=== PATIENT | female | born 1985 | race American Indian/Alaskan Native ===

== ENCOUNTER 2020-08-04 13:15 | Outpatient (REF) | payer OTHER, SELFPAY | END 2020-08-04 13:16 | disposition home or self-care (01) | LOC: HO.LNP 13:15 | PROVIDERS: Visit Provider Internal Medicine Medical Oncology | DX: Z12.4 Encounter for screening for malignant neoplasm of cervix (principal) | CPT/HCPCS: 88142 ==

== ENCOUNTER 2020-08-15 12:45 | Emergency (ER) | payer OTHER, SELFPAY ==
--- NOTE | 2020-08-15 | ECG_ITS ---
Test Reason : CHEST PAIN Blood Pressure : / mmHG Vent. Rate : 079 BPM Atrial Rate : 079 BPM P-R Int : 138 ms QRS Dur : 074 ms QT Int : 370 ms P-R-T Axes : 063 024 038 degrees QTc Int : 424 ms Normal sinus rhythm RSR' or QR pattern in V1 suggests right ventricular conduction delay Otherwise normal ECG When compared with ECG of 20-DEC-2016 08:26, Nonspecific T wave abnormality no longer evident in Anterior leads Referred By: Generic ED Physician Electronically Signed By:BG LEZAMA MD
[2020-08-15 13:25] VITALS: BP 148/87; PULSE 90; RESP 18; TEMP 37.1; O2SAT 98; BMI 36.2
--- NOTE | 2020-08-15 17:29 | XR_ITS ---
EXAMINATION: XR CHEST CLINICAL INFORMATION: Chest pain COMPARISON: 12/20/2016 TECHNIQUE: 2 views of the chest were obtained. FINDINGS: No significant abnormality is noted involving the heart, lungs, mediastinum, bony thorax or soft tissues. XR/XR chest 2V IMPRESSION: Unremarkable examination.
--- NOTE | 2020-08-15 17:34 | ED.CHESTPAIN ---
HPI - Chest Pain General Chief Complaint: Chest Pain Stated Complaint: chest pain Time Seen by Provider: 08/15/20 17:16 Source: patient Mode of arrival: ambulatory Limitations: no limitations History of Present Illness HPI narrative: 35-year-old female with no significant past medical history presents with 3 days of substernal chest pain. The 1st day that the pain started it was alleviated after an hour or 2, 2nd day it was more intermittent and recurrent, thank and today the pain has been a constant unrelieved pressure substernally. She does not describe any palpitations or diaphoresis with this pain. She was evaluated at [facility] which referred her to the emergency department. She denies fevers, chills, palpitations, shortness of breath, abdominal pain, abdominal distention, dysuria, hematuria, nausea, vomiting, diarrhea, prior MIs, or cardiac history. MD complaint: chest pain Pertinent past history: asthma Onset (ago): day(s) (3) Timing of current episode: increasing and still present Prior episodes: Yes Onset: during rest Pain location: substernal Pain radiation: none Severity: moderate Quality: tightness and dull Relieving factors: rest Exacerbating factors: exertion, inspiration and stress Treatment prior to arrival: other ( NSAIDs 800 mg ibuprofen) Risk Factors Coronary artery disease risk factors: none Thoracic aortic dissection risk factors: none Related Data On Oral Contraceptives: No Allergies Allergy/AdvReac Type Severity Reaction Status Date / Time bee pollen [BEE STINGS] Allergy Severe HIVES, Verified 08/15/20 13:28 DIFFICULTY BREATHING pine nut Allergy Severe ANAPHYLAXIS Verified 08/15/20 13:28 amoxicillin [AMOXICILLIN] Allergy Unknown HIVES/SWELLING/DIFFICULTY Verified 08/15/20 13:28 BREATHING penicillin V Allergy Unknown rash Verified 08/15/20 13:28 Penicillins [PENICILLINS] Allergy Unknown DIFFICULTY Verified 08/15/20 13:28 BREATHING,SWELLING sulfamethoxazole Allergy Unknown ITCH,HIVES,THROAT Verified 08/15/20 13:28 [From BACTRIM] CLOSING POST TX, PT HAS HAD WITHOUT RXN trimethoprim [From BACTRIM] Allergy Unknown ITCHING, Verified 08/15/20 13:28 HIVES, THROAT CLOSING bees Allergy Unknown anaphylaxis Uncoded 02/14/16 00:00 Latex Allergy Unknown rash Uncoded 02/14/16 00:00 Latex Gloves Allergy Unknown Rash Uncoded 08/15/20 13:28 Review of Systems Review of Systems: Constitutional: No Weight loss, No Fever, No Chills, No Night Sweats, No Fatigue, No Malaise ENT/Mouth: No Hearing loss, No Ear Pain, No Nasal Congestion, No Sinus Pain, No Hoarseness, No sore throat, No Rhinorrhea, No Swallowing Difficulty Eyes: No Eye Pain, No Swelling, No Redness, No Foreign Body, No Discharge, No Vision Changes Cardiovascular: positive Chest Pain, no SOB, no Dyspnea on Exertion, No Orthopnea, No Edema, No Palpitations Respiratory: No Cough, No Sputum, No Wheezing, No Smoke Exposure, No Dyspnea Gastrointestinal: no Nausea, No Vomiting, No Diarrhea, No abdominal Pain, No Hematochezia, No Melena Genitourinary: No irregular bleeding, No Dysuria, No Urinary Frequency, No Hematuria, No Urinary Incontinence, No Urgency, No Flank Pain, No Urinary Flow Changes, No Hesitancy Musculoskeletal: No joint pain, No Myalgias, No Joint Swelling Skin: No Skin Lesions, No rash Neuro: No Weakness, No Numbness, No Paresthesias, No Loss of Consciousness, No Dizziness, No Headache Psych: positive Anxiety/Panic, No Depression, No SI/HI/AH/VH Heme/Lymph: No Bruising, No Bleeding,No Lymphadenopathy Endocrine: No Polyuria, No Polydipsia, No Temperature Intolerance Yes all other systems are reviewed and are negative [facility] Past Medical History Attestation statement: The following information was validated with the patient. Medical History Asthma Seasonal allergies Surgical History History of appendectomy Social History Social History Alcohol intake: unknown Smoking Status: Unknown if ever smoked Smoked in Last 30 Days: No Use of substances other than those prescribed or required for medical reasons: Unknown Advance Directives: No Advance Directives Information Provided: Yes Physical Exam Vital Signs: Vital Signs: Last Vital Signs Temp 98.7 F 08/15/20 19:46 Pulse 76 08/15/20 19:46 Resp 16 08/15/20 19:46 BP 144/90 H 08/15/20 19:46 Pulse Ox 99 08/15/20 19:46 Body Mass Index 36.2 Appearance: Alert. Oriented X3. No acute distress. Eyes: Pupils equal, round and reactive to light. ENT: Pharynx normal. Neck: Normal inspection. Neck supple. CVS: Normal heart rate and rhythm. Pulses normal. Respiratory: No respiratory distress. Breath sounds normal. Abdomen: Soft and nontender. Skin: Skin warm and dry. Normal skin color. Normal skin turgor. Extremities: No lower extremity edema. Neuro: No motor deficit. No sensory deficit. Course Course Course Narrative: 35-year-old female with no significant past medical history presents with 3 days of chest pain. Plan care to rule out ACS, upper respiratory, GERD. Plan is for EKG, chest x-ray, CBC, Chem 7, troponins. Workup is negative for acute findings, plan of care is for patient to follow-up with primary care physician as this may be anxiety or gastrointestinal in nature. Patient verbalized understanding of and agrees plan care discharge home. MDM - Chest Pain Differential Diagnosis Differential diagnosis: Likely pneumothorax, stable angina, atypical chest pain, st elevation myocardial infarction, costochondritis, chest pain and biliary colic Medical Records Data Attestation: I reviewed the patient's medical records. Lab Data Attestation: I reviewed the patient's lab results. Result diagrams: 08/15/20 17:31 08/15/20 17:31 Labs: Lab Results 08/15/20 08/15/20 08/15/20 Range/Units 17:31 17:31 17:31 WBC 9.9 (4.8-10.8) X10*3/uL RBC 4.87 (4.20-5.50) X10*6/uL Hgb 14.0 (12.0-16.0) g/dl Hct 41.8 (37-47) % MCV 85.8 (80-98) fL MCH 28.7 (27.0-33.0) pg MCHC 33.5 (31.0-35.0) g/dl RDW 12.5 (11.0-16.0) % Plt Count 340 (160-400) X10*3/uL MPV 10.4 (9.4-12.3) fL Immature Gran % (Auto) 0.2 (0.0-0.4) % Neut % (Auto) 68.8 (45-73) % Lymph % (Auto) 23.4 (20-40) % [place] % (Auto) 5.9 (2-11) % Eos % (Auto) 1.1 (0-4) % Baso % (Auto) 0.6 (0-2) % Lymph # (Auto) 2.3 (1.2-4.9) X10*3/uL [place] # (Auto) 0.6 (0.1-1.2) X10*3/uL Eos # (Auto) 0.1 (0.0-0.4) X10*3/uL Baso # (Auto) 0.1 (0.0-0.2) X10*3/uL Abs Immat Gran (auto) 0.02 (0.00-0.03) X10*3/uL Absolute Neuts (auto) 6.8 (2.0-8.3) X10*3/uL Absolute Nucleated RBC 0.000 (0.0-0.012) X10*3/uL Nucleated RBC % (auto) 0.0 (0.0-0.2) /100WBC Sodium 140 (135-145) mmol/L Potassium 3.8 (3.3-5.1) mmol/l Chloride 103 (96-108) mmol/L Carbon Dioxide 26 (22-29) mmol/L Anion Gap 15 (12-20) BUN 13 (9-16) mg/dL Creatinine 0.73 (0.5-1.4) mg/dL Estim Creat Clear Calc 152.2 Estimated GFR > 60 Random Glucose 77 (60-115) mg/dL Calcium 9.4 (8.4-10.2) mg/dL Magnesium 2.2 (1.6-2.6) mg/dL Total Bilirubin 0.6 (0.0-1.0) mg/dL Direct Bilirubin 0.3 (0.0-0.5) mg/dL AST 16 (5-31) U/L ALT 17 (0-31) U/L Alkaline Phosphatase 64 (39-117) U/L Troponin I High Sens < 3.5 (<3.5-17.0) ng/L Total Protein 7.4 (6.5-8.0) g/dL Albumin 4.8 (3.5-5.0) g/dL Lipase 30 (8-78) U/L Urine Color Urine Appearance Urine pH (5.0-8.0) Ur Specific [place] (1.005-1.025) Urine Protein (NEG-TRACE) MG/DL Urine Glucose (UA) (NEG) MG/DL Urine Ketones (NEG) MG/DL Urine Blood (NEG) Urine Nitrite (NEG) Ur Leukocyte Esterase (NEG) 08/15/20 Range/Units 18:46 WBC (4.8-10.8) X10*3/uL RBC (4.20-5.50) X10*6/uL Hgb (12.0-16.0) g/dl Hct (37-47) % MCV (80-98) fL MCH (27.0-33.0) pg MCHC (31.0-35.0) g/dl RDW (11.0-16.0) % Plt Count (160-400) X10*3/uL MPV (9.4-12.3) fL Immature Gran % (Auto) (0.0-0.4) % Neut % (Auto) (45-73) % Lymph % (Auto) (20-40) % [place] % (Auto) (2-11) % Eos % (Auto) (0-4) % Baso % (Auto) (0-2) % Lymph # (Auto) (1.2-4.9) X10*3/uL [place] # (Auto) (0.1-1.2) X10*3/uL Eos # (Auto) (0.0-0.4) X10*3/uL Baso # (Auto) (0.0-0.2) X10*3/uL Abs Immat Gran (auto) (0.00-0.03) X10*3/uL Absolute Neuts (auto) (2.0-8.3) X10*3/uL Absolute Nucleated RBC (0.0-0.012) X10*3/uL Nucleated RBC % (auto) (0.0-0.2) /100WBC Sodium (135-145) mmol/L Potassium (3.3-5.1) mmol/l Chloride (96-108) mmol/L Carbon Dioxide (22-29) mmol/L Anion Gap (12-20) BUN (9-16) mg/dL Creatinine (0.5-1.4) mg/dL Estim Creat Clear Calc Estimated GFR Random Glucose (60-115) mg/dL Calcium (8.4-10.2) mg/dL Magnesium (1.6-2.6) mg/dL Total Bilirubin (0.0-1.0) mg/dL Direct Bilirubin (0.0-0.5) mg/dL AST (5-31) U/L ALT (0-31) U/L Alkaline Phosphatase (39-117) U/L Troponin I High Sens (<3.5-17.0) ng/L Total Protein (6.5-8.0) g/dL Albumin (3.5-5.0) g/dL Lipase (8-78) U/L Urine Color YELLOW Urine Appearance CLEAR Urine pH 7.0 (5.0-8.0) Ur Specific [place] 1.020 (1.005-1.025) Urine Protein NEG (NEG-TRACE) MG/DL Urine Glucose (UA) NEG (NEG) MG/DL Urine Ketones NEG (NEG) MG/DL Urine Blood NEG (NEG) Urine Nitrite NEG (NEG) Ur Leukocyte Esterase NEG (NEG) Imaging Data Chest x-ray: Attestation: I personally reviewed and interpreted this imaging study as follows: Radiologist's impression: EXAMINATION: XR CHEST CLINICAL INFORMATION: Chest pain COMPARISON: 12/20/2016 TECHNIQUE: 2 views of the chest were obtained. FINDINGS: No significant abnormality is noted involving the heart, lungs, mediastinum, bony thorax or soft tissues. XR/XR chest 2V IMPRESSION: Unremarkable examination. ECG Data ECG #1: Attestation: I personally reviewed and interpreted this ECG as follows: ECG interpretation date: 08/15/20 ECG interpretation time: 12:59 Interpretation: Ventricular rate 79 beats per minute, p.r. interval 138 milliseconds, QRS duration 74 milliseconds, QTC 370, QTC 424, normal sinus rhythm, normal EKG, no prior EKGs available. Discharge Plan Discharge Clinical Impression: Atypical chest pain Chest pain Qualifiers: Chest pain type: unspecified Qualified Code(s): R07.9 - Chest pain, unspecified Patient Disposition: Home, Self-Care Instructions: Chest Pain (ED) Additional Instructions: you were evaluated for 3 days of chest pain. EKG is normal sinus rhythm, chest x-ray is negative for acute findings, troponin which is a cardiac enzyme is negative, labs are unremarkable. Urinalysis is negative. Please follow-up with your primary care physician as this may be anxiety or gastrointestinal in nature. Thank you for choosing this emergency department for evaluation. Please follow-up with primary care physician as needed. Return to the emergency department for any new, concerning, or worsening symptoms.
[2020-08-15 17:35] LABS: MANUAL DIFF FLAG NO
[2020-08-15 17:37] LABS: Basophils Absolute Auto 0.1 X10*3/uL (0.0-0.2); Basophils Percent Auto 0.6 % (0-2); Eosinophils Absolute Auto 0.1 X10*3/uL (0.0-0.4); Eosinophils Percent Auto 1.1 % (0-4); Hematocrit 41.8 % (37-47); Imm Gran Abs Auto 0.02 X10*3/uL (0.00-0.03); Imm Gran Pct Auto 0.2 % (0.0-0.4); Lymphocytes Absolute Auto 2.3 X10*3/uL (1.2-4.9); Lymphocytes Percent Auto 23.4 % (20-40); Mean Corpuscular HGB Conc 33.5 g/dl (31.0-35.0); Mean Corpuscular Hemoglobin 28.7 pg (27.0-33.0); Mean Corpuscular Volume 85.8 fL (80-98); Mean Platelet Volume 10.4 fL (9.4-12.3); Monocytes Absolute Auto 0.6 X10*3/uL (0.1-1.2); Monocytes Percent Auto 5.9 % (2-11); Neutrophils Absolute Auto 6.8 X10*3/uL (2.0-8.3); Neutrophils Percent Auto 68.8 % (45-73); Platelet Count 340 X10*3/uL (160-400); Red Blood Count 4.87 X10*6/uL (4.20-5.50); Red Cell Distribution Width 12.5 % (11.0-16.0); White Blood Count 9.9 X10*3/uL (4.8-10.8)
[2020-08-15 17:49] VITALS: PULSE 91; RESP 18; O2SAT 98
[2020-08-15] MEDS: Magnesium Hydrox/Alum Hydrox 30 ML ORAL.SUSP PO (17:59)
[2020-08-15 18:06] LABS: Alanine Aminotransferase 17 U/L (0-31); Albumin Level 4.8 g/dL (3.5-5.0); Alkaline Phosphatase 64 U/L (39-117); Anion Gap 15 (12-20); Aspartate Amino Transferase 16 U/L (5-31); Bilirubin Direct 0.3 mg/dL (0.0-0.5); Bilirubin Total 0.6 mg/dL (0.0-1.0); Blood Urea Nitrogen 13 mg/dL (9-16); Calcium 9.4 mg/dL (8.4-10.2); Carbon Dioxide 26 mmol/L (22-29); Chloride 103 mmol/L (96-108); Creatinine Clr Calc Pharmacy 152.2; Estimated Glomerular Filt Rate > 60; Glucose Random 77 mg/dL (60-115); Lipase 30 U/L (8-78); Magnesium 2.2 mg/dL (1.6-2.6); Potassium 3.8 mmol/l (3.3-5.1); Sodium 140 mmol/L (135-145); Total Protein 7.4 g/dL (6.5-8.0)
[2020-08-15 18:08] LABS: Troponin-I High Sensitivity < 3.5 ng/L (<3.5-17.0)
--- NOTE | 2020-08-15 18:47 | PC.NURSE ---
UA obtained and sent. Pt ambulating to and from the bathroom with a munguia/steady gait. Pt is CAOx4, speaking full sentences, reporting 5/10 substernal, non reproducible CP that started while she was working today. VSS. Continue to monitor.
[2020-08-15 19:23] LABS: Glucose Urine UA NEG (NEG); Leukocyte Esterase Urine NEG (NEG); Nitrite Urine NEG (NEG); Urine Blood NEG (NEG); Urine Ketones NEG (NEG); Urine Protein NEG (NEG-TRACE)
[2020-08-15 19:26] LABS: Appearance Urine CLEAR; Color Urine YELLOW
[2020-08-15 19:46] VITALS: BP 144/90; PULSE 76; RESP 16; TEMP 37.1; O2SAT 99
== END 2020-08-15 21:23 | disposition home or self-care (01) ==
PROVIDERS: Nurse Practitioner Family; Emergency Provider Emergency Medicine; PCP Internal Medicine Medical Oncology
DX: R07.9 Chest pain, unspecified (principal)
CPT/HCPCS: 36415; 71046; 80048; 80076; 81003; 83690; 83735; 84484; 85025; 93005; 99283; 99284

== ENCOUNTER 2020-11-16 07:41 | Outpatient (REF) | payer MEDICAID, SELFPAY | END 2020-11-16 07:42 | disposition home or self-care (01) | LOC: HO.HOSX 07:41 | PROVIDERS: Visit Provider Orthopaedic Surgery | DX: M25.461 Effusion, right knee (principal); M17.10 Unilateral primary osteoarthritis, unspecified knee | CPT/HCPCS: 99212 ==

== ENCOUNTER 2020-11-28 15:39 | Outpatient (REF) | payer MEDICAID, SELFPAY ==
--- NOTE | ~2020-11-28 | XR_ITS ---
EXAMINATION: XR KNEE, RIGHT CLINICAL INFORMATION: Acute right knee pain. COMPARISON: None TECHNIQUE: Four views of the right knee. FINDINGS: There is no acute fracture or dislocation. The joint spaces are unremarkable. There is a small to moderate suprapatellar joint effusion. Mild prepatellar soft tissue swelling is seen. XR/XR knee RT 4V IMPRESSION: 1. Small to moderate suprapatellar joint effusion without acute osseous abnormality or significant degenerative joint changes.
== END 2020-11-28 15:40 | disposition home or self-care (01) ==
LOC: HO.XRAY 15:39
PROVIDERS: PCP Internal Medicine Medical Oncology; Visit Provider Internal Medicine Medical Oncology
DX: M54.5 Low back pain (principal); M25.561 Pain in right knee
CPT/HCPCS: 73564

== ENCOUNTER → 2020-12-12 08:42 | Outpatient (BNVA) | payer OTHER, SELFPAY | PROVIDERS: Visit Provider Orthopaedic Surgery | DX: M22.2X1 Patellofemoral disorders, right knee (principal) | CPT/HCPCS: 99212 ==

== ENCOUNTER 2022-03-13 10:11 | Outpatient (REF) | payer OTHER, SELFPAY ==
[2022-03-13 15:43] LABS: CT PCR NOT DETECTED (Not Detect.)
[2022-03-13 15:44] LABS: NG PCR NOT DETECTED (Not Detect.)
[2022-03-21 06:46] LABS: HPV mRNA E6/E7 rflx Not Detected (Not Detected)
== END 2022-03-13 10:12 | disposition home or self-care (01) ==
LOC: HO.LAB 10:11
PROVIDERS: Visit Provider Advanced Practice Midwife
DX: Z01.419 Encounter for gynecological examination (general) (routine) without abnormal findings (principal); Z11.3 Encounter for screening for infections with a predominantly sexual mode of transmission; Z11.51 Encounter for screening for human papillomavirus (HPV)
CPT/HCPCS: 87491; 87591; 87624; 88142

== ENCOUNTER 2022-07-02 17:12 | Outpatient (REF) | payer OTHER, SELFPAY ==
--- NOTE | ~2022-07-02 | XR_ITS ---
EXAMINATION: XR HAND, RIGHT CLINICAL INFORMATION: Right hand pain COMPARISON: None TECHNIQUE: PA, lateral, and oblique views of the right hand. FINDINGS: The bones and soft tissues are normal. No fracture. Alignment is anatomic. Joint spaces are maintained. No erosions or soft tissue calcifications. XR/XR hand RT min 3V IMPRESSION: Unremarkable right hand.
== END 2022-07-02 17:13 | disposition home or self-care (01) ==
LOC: HO.HOSX 17:12
PROVIDERS: Visit Provider Orthopaedic Surgery
DX: M79.641 Pain in right hand (principal)
CPT/HCPCS: 73130

== ENCOUNTER 2022-07-29 10:47 | Outpatient (REF) | payer OTHER, SELFPAY ==
--- NOTE | ~2022-07-29 | XR_ITS ---
EXAMINATION: XR HAND, RIGHT CLINICAL INFORMATION: Pain COMPARISON: 07/03/2022 TECHNIQUE: PA, lateral, and oblique views of the right hand. FINDINGS: The bones and soft tissues are normal. No fracture. Alignment is anatomic. Joint spaces are maintained. No erosions or soft tissue calcifications. XR/XR hand RT min 3V IMPRESSION: Normal right hand.
== END 2022-07-29 10:48 | disposition home or self-care (01) ==
LOC: HO.HOSX 10:47
PROVIDERS: Visit Provider Orthopaedic Surgery
DX: M79.641 Pain in right hand (principal)
CPT/HCPCS: 73130

== ENCOUNTER 2022-09-11 | Outpatient (REF) | payer OTHER, SELFPAY ==
--- NOTE | ~2022-09-11 | XR_ITS ---
EXAMINATION: XR HAND, RIGHT CLINICAL INFORMATION: Pain COMPARISON: Previous x-ray most recent July 2022 TECHNIQUE: PA, lateral, and oblique views of the right hand. FINDINGS: Bone alignment is normal. No fracture or dislocation. There is very mild arthritis at the IP joints with small osteophytes, the IP joint of the thumb and DIP joint of the third finger. Joint spaces are otherwise normal. Soft tissues are normal. XR/XR hand RT min 3V IMPRESSION: Very mild arthritis with small osteophytes at the IP joint of the thumb and DIP joint of the third finger.
== END 2022-09-11 00:01 | disposition home or self-care (01) ==
LOC: HO.HOSX
PROVIDERS: Visit Provider Orthopaedic Surgery
DX: Z13.89 Encounter for screening for other disorder (principal)

== ENCOUNTER → 2022-09-11 13:07 | Outpatient (BNVA) | payer OTHER, SELFPAY | PROVIDERS: PCP Internal Medicine Medical Oncology; Visit Provider Orthopaedic Surgery | DX: S62.521D Displaced fracture of distal phalanx of right thumb, subsequent encounter for fracture with routine healing (principal); S69.91XD Unspecified injury of right wrist, hand and finger(s), subsequent encounter | CPT/HCPCS: 73130 ==

== ENCOUNTER 2023-04-11 09:03 | Outpatient (AMB) | payer OTHER, SELFPAY ==
--- NOTE | 2023-04-11 09:08 | A.OFFVIS_ITS ---
Intake Vital Signs 04/11/23 09:09 Height 5 ft 9 in Weight 247 lb BMI 36.5 BP 120/76 Intake Visit Reasons: Annual Intake Note: no concerns The patient agreed to use of a medical massage therapist during this encounter. Scribed for JT Siddiqi by Sylwia Griffiths medical massage therapist, on 04/11/2023 at 9:21 am EST. Associate Professor Of Art History Required: No Information Interpreted: non-clinical & clinical Airplane Tube Builder: Airplane Tube Builder Present ([place]) Accompanied by: Self / Same As Patient Allergies bee pollen [BEE STINGS] Allergy (Severe, Verified 04/11/23 09:14) HIVES, DIFFICULTY BREATHING pine nut Allergy (Severe, Verified 04/11/23 09:14) ANAPHYLAXIS amoxicillin [AMOXICILLIN] Allergy (Unknown, Verified 04/11/23 09:14) HIVES/SWELLING/DIFFICULTY BREATHING penicillin V Allergy (Unknown, Verified 04/11/23 09:14) rash Penicillins [PENICILLINS] Allergy (Unknown, Verified 04/11/23 09:14) DIFFICULTY BREATHING,SWELLING sulfamethoxazole [From BACTRIM] Allergy (Unknown, Verified 04/11/23 09:14) ITCH,HIVES,THROAT CLOSING POST TX, PT HAS HAD WITHOUT RXN trimethoprim [From BACTRIM] Allergy (Unknown, Verified 04/11/23 09:14) ITCHING, HIVES, THROAT CLOSING bees Allergy (Unknown, Uncoded 04/11/23 09:14) anaphylaxis Latex Allergy (Unknown, Uncoded 04/11/23 09:14) rash Latex Gloves Allergy (Unknown, Uncoded 04/11/23 09:14) Rash Is last menstrual period known: Yes Last menstrual period: 03/11/23 HPI HPI Comments History of Present Illness Details She is a premenopausal woman presenting for annual exam. She admits to eating healthy and tries to stay active with exercise resulting in weight loss. Currently sexually active. Uses condoms for BC. Denies vaginal itching and irritation. STD screening offered; she declines. Denies family hx of colon and ovarian cancer. Last pap smear 03/14/22 [facility] Medical History Asthma Seasonal allergies Surgical History History of appendectomy Family History Mother Diabetes Father No problems noted. 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 Sexual orientation: Straight/Heterosexual Gender identity: Female Female Reproductive History Menstrual Age of Menarche: 9 Date of last menstrual period: 03/11/23 control method: condoms Total pregnancies: 0 Date of last pap smear: 03/14/22 Physical Exam Vital Signs: Last Vital Signs BP 120/76 04/11/23 09:09 BMI result Body Mass Index 36.5 Const General: cooperative, healthy appearing, no acute distress, well developed and alert Orientation/consciousness: patient oriented x3 HEENT Head: Yes normal to inspection Eyes General: appearance normal, both eyes and all related structures Neck Neck: Yes normal visual inspection Thyroid: Thyroid normal Chest Chest palpation & inspection: normal inspection of the chest Breast/axilla inspection: normal inspection of the breasts (no puckering, di mpling, peau de orange, retraction, discharge, masses) Breast/axilla palpation: normal palpation of the breasts Resp Effort & Inspection: normal respiratory effort GI Inspection: Yes normal to inspection Palpation (GI): Soft to palpation (to palpation) Rectal Exam - Female: deferred General: Yes bladder normal to inspection External Female Exam: normal external appearance and normal appearance of the urethra Speculum Exam - Vagina: normal appearance of the vagina, normal palpation and normal vaginal discharge Speculum Exam - Cervix: normal appearance of the cervix and normal palpation Bimanual exam- vagina & uterus: normal palpation and normal palpation Bimanual Exam- Adnexa, other: normal adnexae and no masses Skin General skin exam: no rashes or lesions noted Neuro General: patient oriented x3 Cognition (Neuro): normal cognition Extrem General: Yes normal to inspection Psych Attitude: cooperative Thought process: Normal thought process present Assessment & Plan Assessment & Plan (1) Encounter for well woman exam: Code(s): Z01.419 - Encounter for gynecological examination (general) (routine) without ab normal findings Plan: Discussed: Current recommendations for pap smears per ASCCP guidelines Breast awareness and periodic self breast exams. Maintaining a healthy lifestyle including a well balanced diet and routine exercise. Encouraged continued weight loss. Continue condom use. All of her questions and concerns were addressed to the best of my ability. RTO in one year for AG. Coding Level of Care Code Est Pt Prev Care 18-39y(44120) Diagnoses Encounter for well woman exam Z01.419
[2023-04-11 09:09] VITALS: BP 120/76; BMI 36.5
== END 2023-04-11 09:36 | disposition home or self-care (01) ==
LOC: HO.HWS 09:03
PROVIDERS: PCP Internal Medicine Medical Oncology; Visit Provider Advanced Practice Midwife
DX: Z01.419 Encounter for gynecological examination (general) (routine) without abnormal findings (principal)
CPT/HCPCS: 99395

== ENCOUNTER → 2023-04-11 09:03 | Outpatient (BNVA) | payer OTHER, SELFPAY | PROVIDERS: PCP Internal Medicine Medical Oncology; Visit Provider Advanced Practice Midwife ==

== ENCOUNTER 2023-08-21 12:40 | Emergency (ER) | payer OTHER, SELFPAY ==
--- NOTE | ~2023-08-21 | US_ITS ---
EXAMINATION: US ABDOMEN LIMITED CLINICAL INFORMATION: Right upper quadrant tenderness. COMPARISON: None available. TECHNIQUE: Real-time imaging of the right upper quadrant abdominal viscera. FINDINGS: PANCREAS: Normal. LIVER: The liver measures 18 cm in length and is heterogeneously increased in echotexture. No biliary ductal dilatation is evidentThe liver contour is normal. No focal hepatic lesion. GALLBLADDER: Along the anterior wall of the gallbladder, there is a 2-3 mm echogenic focus, perhaps a small polyp or hyperplastic cholecystosis. No definite shadowing calculi, wall thickening or pericholecystic fluid is evident. COMMON BILE DUCT: Normal in caliber measuring 0.2 cm in diameter. RIGHT KIDNEY: Normal. No hydronephrosis. No renal calculi or focal parenchymal lesions. The kidney measures 11.5 cm in maximum dimension. FREE FLUID: None. US/US abdomen limited IMPRESSION: 1. Heterogeneously echogenic, mildly enlarged liver, statistically on the basis of steatosis. 2. Small polyp or adherent sludge along the anterior wall of the gallbladder, but no sonographic evidence of cholelithiasis or cholecystitis.
[2023-08-21 13:22] VITALS: BP 151/86; PULSE 100; RESP 18; TEMP 36.3; O2SAT 100; BMI 35.8
--- NOTE | 2023-08-21 13:22 | ED_ITS ---
HPI - General Adult General Chief complaint: Abdominal Pain Stated complaint: abd pain into back Time Seen by Provider: 08/21/23 20:02 Source: patient Mode of arrival: ambulatory Limitations: no limitations History of Present Illness HPI narrative: 38 yo female with PMH of asthma, prior appendectomy, IBS, here with c/o upper abdominal pain and now radiating to right abdomen since January. No unexplained weight loss she notes it does go up to the chest with burning at times. She has not been on antacid since childhood. She does not take NSAIDs, no prior GI appointments or EGD in the past. She has no black or bloody stools. MD complaint: abdominal pain Onset (ago): month(s) (6) Location: abdomen Radiation: non-radiation Severity: moderate Quality: burning and aching Pain Consistency: constant Relieving factors: none Exacerbating factors: eating Associated symptoms: denies other symptoms Treatments prior to arrival: none Related Data Previous Rx's Medication Instructions Recorded omeprazole 20 mg capsule,delayed 20 mg PO DAILY #30 caps 08/21/23 release Allergies Allergy/AdvReac Type Severity Reaction Status Date / Time bee pollen [BEE STINGS] Allergy Severe HIVES, Verified 08/21/23 13:21 DIFFICULTY BREATHING pine nut Allergy Severe ANAPHYLAXIS Verified 08/21/23 13:21 amoxicillin [AMOXICILLIN] Allergy Unknown HIVES/SWELLING/DIFFICULTY Verified 08/21/23 13:21 BREATHING penicillin V Allergy Unknown rash Verified 08/21/23 13:21 Penicillins [PENICILLINS] Allergy Unknown DIFFICULTY Verified 08/21/23 13:21 BREATHING,SWELLING sulfamethoxazole Allergy Unknown ITCH,HIVES,THROAT Verified 08/21/23 13:21 [From BACTRIM] CLOSING POST [place], PT HAS HAD WITHOUT RXN trimethoprim [From BACTRIM] Allergy Unknown ITCHING, Verified 08/21/23 13:21 HIVES, THROAT CLOSING bees Allergy Unknown anaphylaxis Uncoded 04/11/23 09:14 Latex Allergy Unknown rash Uncoded 04/11/23 09:14 Latex Gloves Allergy Unknown Rash Uncoded 04/11/23 09:14 Review of Systems 2 Review of Systems: Constitutional : No Weight loss, No Fever, No Chills ENT/Mouth : No sore throat, No Rhinorrhea Eyes: No Swelling, No Redness Cardiovascular : No Chest Pain, No SOB, NoEdema Respiratory : No Cough, No Sputum, No Wheezing Gastrointestinal : no Nausea, no Vomiting, no Diarrhea, positive abdominal Pain, No Hematochezia, No Melena Genitourinary : No Dysuria, No Urinary Frequency, No Hematuria, No Urgency Musculoskeletal : No joint pain, No Myalgias, No Joint Swelling Skin : No Skin Lesions, No rash Neuro : No Weakness, No Numbness, No Dizziness, No Headache Psych : No Anxiety/Panic, No Depression All other systems reviewed and are negative. [facility] Past Medical History Attestation statement: The following information was validated with the patient. Source: old records reviewed Medical History Seasonal allergies Asthma Surgical History History of appendectomy Family History Family History Mother Diabetes Father No problems noted. 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 Oriented X3. No acute distress. Eyes: Pupils equal, round and reactive to light. ENT: Pharynx normal. Neck: Normal inspection. Neck supple. CVS: Normal heart rate and rhythm. Pulses normal. Respiratory: No respiratory distress. Breath sounds normal. Abdomen: Soft and very mild upper abdominal ttp no rebound or guarding, neg tran's Skin: Skin warm and dry. Normal skin color. Normal skin turgor. Extremities: No lower extremity edema. No calf ttp Neuro: Oriented X 3. No motor deficit. No sensory deficit. Course Course Course Narrative: This is a rapid medical exam: Additional HPI, ROS, PE not included below will be deferred to primary provider. Patient is a 38-year-old female presenting to the emergency department with complaint of right upper quadrant pain radiating into back for past few months. Saw PCP, was prescribed omeprazole which did not improve symptoms. States pain is now epigastric radiating into chest and back. Reports nausea but denies vomiting. Pain worsened this morning after drinking coffee. Plan: EKG, labs, RUQ U/S Medical Decision Making Medical Decision Making [facility] Narrative: 38 yo female with PMH of asthma, prior appendectomy, IBS, here with c/o 6 months of upper abdominal pain no weight loss, fevers, no hematuria, no n/v/d. At this time will obtain basic labs, US to evaluate GB. Can follow up with GI and start on PPI. No GIB symptoms at this time not on NSAIDs. Differential Diagnosis Differential Diagnoses: The differential diagnosis associated with the presentation includes PUD, gastritis, biliary colic Admission/Observation Consideration of admission/observation: Escalation of care including admission/observation considered 6 months of symptoms reassuring labs and US can be managed as GI as outpatient Lab Data [facility] Lab Attestation statement: I reviewed the patient's lab results. 08/21/23 14:17 08/21/23 14:17 Labs: Lab Results 08/21/23 08/21/23 Range/Units 14:17 20:17 WBC 9.3 (4.8-10.8) X10*3/uL RBC 4.60 (4.20-5.50) X10*6/uL Hgb 13.1 (12.0-16.0) g/dl Hct 38.9 (37.0-47.0) % MCV 84.6 (80.0-98.0) fL MCH 28.5 (27.0-33.0) pg MCHC 33.7 (31.0-35.0) g/dl RDW 13.0 (11.0-16.0) % Plt Count 291 (160-400) X10*3/uL MPV 10.2 (9.4-12.3) fL Immature Gran % (Auto) 0.3 (0.0-0.4) % Neut % (Auto) 77.1 H (45-73) % Lymph % (Auto) 17.1 L (20-40) % [place] % (Auto) 4.4 (2-11) % Eos % (Auto) 0.6 (0-4) % Baso % (Auto) 0.5 (0-2) % Lymph # (Auto) 1.6 (1.2-4.9) X10*3/uL [place] # (Auto) 0.4 (0.1-1.2) X10*3/uL Eos # (Auto) 0.1 (0.0-0.4) X10*3/uL Baso # (Auto) 0.1 (0.0-0.2) X10*3/uL Abs Immat Gran (auto) 0.03 (0.00-0.03) X10*3/uL Absolute Neuts (auto) 7.2 (2.0-8.3) x10*3/uL Absolute Nucleated RBC 0.000 (0.0-0.012) X10*3/uL Nucleated RBC % (auto) 0.0 (0.0-0.2) /100WBC Sodium 140 (135-145) mmol/L Potassium 4.1 (3.3-5.1) mmol/L Chloride 105 (96-108) mmol/L Carbon Dioxide 28 (22-29) mmol/L Anion Gap 11 L (12-20) BUN 14 (9-16) mg/dL Creatinine 0.71 (0.5-1.4) mg/dL Estim Creat Clear Calc 146.5 Estimated GFR > 60 Random Glucose 100 (60-115) mg/dL Calcium 9.6 (8.4-10.2) mg/dL Total Bilirubin 0.4 (0.0-1.0) mg/dL AST 18 (5-31) U/L ALT 17 (0-31) U/L Alkaline Phosphatase 51 (39-117) U/L Troponin I High Sens < 2.7 (<3.5-17.0) ng/L Total Protein 7.3 (6.5-8.0) g/dL Albumin 4.4 (3.5-5.0) g/dL Lipase 22 (8-78) U/L Beta HCG, Quant < 2 mIU/mL Urine Color Yellow Urine Appearance Clear Urine pH 6.5 (5.0-9.0) Ur Specific [place] 1.015 (1.005-1.025) Urine Protein Negative (Neg-Trace) mg/dL Urine Glucose (UA) Negative (Negative) mg/dL Urine Ketones Negative (Negative) mg/dL Urine Blood Negative (Negative) Urine Nitrite Negative (Negative) Ur Leukocyte Esterase Negative (Negative) Independent Interpretation I performed an independent interpretation of an: EKG and Ultrasound (no cholecystitis) Interpretation: Rate: 76 Rhythm: NSR [place]: normal Normal P waves. Normal JEANNE. Normal QRS complex. ST T wave : normal no DAR qTC: normal prior studies: no acute ischemia The study has been interpreted contemporaneously by me. . Radiology Impression Discussion of test interpretation with radiology: I have reviewed the radiologist's reading. Independent Historian Clinical information obtained from an independent historian. History obtained from or confirmed by: Spouse External Record Review External record reviewed: Inpatient record Prescription Management I considered prescription management with: Other Discharge Plan Discharge Clinical Impression: Gastritis Qualifiers: Gastritis type: unspecified gastritis Chronicity: acute Gastritis bleeding: w ithout bleeding Qualified Code(s): K29.00 - Acute gastritis without bleeding Abdominal pain Qualifiers: Abdominal location: epigastric Qualified Code(s): R10.13 - Epigastric pain Patient Disposition: Home, Self-Care Instructions: Gastritis (ED), Abdominal Pain (ED) Additional Instructions: US/US abdomen limited IMPRESSION: 1. Heterogeneously echogenic, mildly enlarged liver, statistically on the basis of steatosis. 2. Small polyp or adherent sludge along the anterior wall of the gallbladder, but no sonographic evidence of cholelithiasis or cholecystitis. return for worsening pain, fevers, black or bloody stools. follow up with GI. avoid NSAIDs but tylenol is okay Prescriptions: New omeprazole 20 mg capsule,delayed release(DR/EC) 20 mg PO DAILY Qty: 30 0RF Referrals: Nelly Mas, DRAINLAYER-BC [Nurse Practitioner] - (call to schedule appointment) Stand Alone Forms: Work/School Release Interventions: ED Discharge Assessment Last Done: 08/21/23 20:50 Discharge Date/Time: 08/21/23 20:51
--- NOTE | 2023-08-21 13:25 | ECG_ITS ---
Test Reason : CP Blood Pressure : / mmHG Vent. Rate : 076 BPM Atrial Rate : 076 BPM P-R Int : 154 ms QRS Dur : 076 ms QT Int : 388 ms P-R-T Axes : 048 018 022 degrees QTc Int : 436 ms Normal sinus rhythm with sinus arrhythmia Normal ECG When compared with ECG of 15-AUG-2020 12:59, No significant change was found Referred By: Love Lyman Electronically Signed By:ANIYAH DIANE MD
[2023-08-21 14:20] LABS: MANUAL DIFF FLAG NO
[2023-08-21 14:24] LABS: Basophils Absolute Auto 0.1 X10*3/uL (0.0-0.2); Basophils Percent Auto 0.5 % (0-2); Eosinophils Absolute Auto 0.1 X10*3/uL (0.0-0.4); Eosinophils Percent Auto 0.6 % (0-4); Hematocrit 38.9 % (37.0-47.0); Hemoglobin 13.1 g/dl (12.0-16.0); Imm Gran Abs Auto 0.03 X10*3/uL (0.00-0.03); Imm Gran Pct Auto 0.3 % (0.0-0.4); Lymphocytes Absolute Auto 1.6 X10*3/uL (1.2-4.9); Lymphocytes Percent Auto 17.1 % (20-40); Mean Corpuscular HGB Conc 33.7 g/dl (31.0-35.0); Mean Corpuscular Hemoglobin 28.5 pg (27.0-33.0); Mean Corpuscular Volume 84.6 fL (80.0-98.0); Mean Platelet Volume 10.2 fL (9.4-12.3); Monocytes Absolute Auto 0.4 X10*3/uL (0.1-1.2); Monocytes Percent Auto 4.4 % (2-11); Neutrophils Absolute Auto 7.2 x10*3/uL (2.0-8.3); Neutrophils Percent Auto 77.1 % (45-73); Platelet Count 291 X10*3/uL (160-400); White Blood Count 9.3 X10*3/uL (4.8-10.8)
[2023-08-21 14:39] LABS: Alanine Aminotransferase 17 U/L (0-31); Albumin Level 4.4 g/dL (3.5-5.0); Alkaline Phosphatase 51 U/L (39-117); Anion Gap 11 (12-20); Aspartate Amino Transferase 18 U/L (5-31); Bilirubin Total 0.4 mg/dL (0.0-1.0); Blood Urea Nitrogen 14 mg/dL (9-16); Calcium 9.6 mg/dL (8.4-10.2); Carbon Dioxide 28 mmol/L (22-29); Chloride 105 mmol/L (96-108); Creatinine Clr Calc Pharmacy 146.5; Estimated Glomerular Filt Rate > 60; Glucose Random 100 mg/dL (60-115); Potassium 4.1 mmol/L (3.3-5.1); Sodium 140 mmol/L (135-145); Total Protein 7.3 g/dL (6.5-8.0)
[2023-08-21 14:46] LABS: Troponin-I High Sensitivity < 2.7 ng/L (<3.5-17.0)
[2023-08-21 15:06] LABS: HCG Quantitative < 2 mIU/mL
[2023-08-21 20:27] LABS: Appearance Urine Clear; Color Urine Yellow; Glucose Urine UA Negative (Negative); Leukocyte Esterase Urine Negative (Negative); Nitrite Urine Negative (Negative); PH 6.5 (5.0-9.0); Specific Gravity - Urine 1.015 (1.005-1.025); Urine Blood Negative (Negative); Urine Ketones Negative (Negative); Urine Protein Negative (Neg-Trace)
[2023-08-21 21:20] LABS: Lipase 22 U/L (8-78)
== END 2023-08-21 20:51 | disposition home or self-care (01) ==
PROVIDERS: Registered Nurse Emergency; Emergency Provider Emergency Medicine; PCP Internal Medicine Medical Oncology
DX: K29.00 Acute gastritis without bleeding (principal); R10.13 Epigastric pain; R07.89 Other chest pain; M54.50 Low back pain, unspecified; Z87.891 Personal history of nicotine dependence; Z79.899 Other long term (current) drug therapy
CPT/HCPCS: 36415; 76705; 80053; 81003; 83690; 84484; 84702; 85025; 93005; 99283; 99284

== ENCOUNTER → 2023-08-21 13:25 | Outpatient (BNV) | payer OTHER, SELFPAY | PROVIDERS: Emergency Provider Emergency Medicine; PCP Internal Medicine Medical Oncology; Visit Provider Internal Medicine Cardiovascular Disease | DX: R07.9 Chest pain, unspecified (principal) | CPT/HCPCS: 93010 ==

== ENCOUNTER 2023-10-24 08:33 | Day surgery (SDC) | payer OTHER, SELFPAY ==
[2023-10-22 13:16] VITALS: BMI 33.9
--- NOTE | 2023-10-23 10:11 | P.CONAN_ITS ---
Documented by User: Theresa Johnson NP 10/23/23 10:11 HPI - Anesthesia Eval Consult details Narrative: 38yo F for Upper Endoscopy PMFSH Active Problems Active Problems: All Active Problems (Updated 10/22/23 @ 13:15 by Cady Flores RN) Injury of nail bed of right thumb (Acute) Fracture of distal phalanx of right thumb (Acute) Patellofemoral pain syndrome of right knee (Acute) Past Medical History Medical History Back pain Seasonal allergies Asthma Family History Family History Mother Diabetes Father No problems noted. 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 Sexual orientation: Straight/Heterosexual Gender identity: Female Meds Allergies Allergy/AdvReac Type Severity Reaction Status Date / Time bee pollen [BEE STINGS] Allergy Severe HIVES, Verified 08/21/23 13:21 DIFFICULTY BREATHING pine nut Allergy Severe ANAPHYLAXIS Verified 08/21/23 13:21 sulfamethoxazole Allergy Severe ITCH,HIVES,THROAT Verified 10/22/23 13:12 [From BACTRIM] CLOSING POST [place], PT HAS HAD WITHOUT RXN trimethoprim [From BACTRIM] Allergy Severe ITCHING, Verified 10/22/23 13:12 HIVES, THROAT CLOSING amoxicillin [AMOXICILLIN] Allergy Intermediate HIVES/SWELLING/DIFFICULTY Verified 10/22/23 13:12 BREATHING/RASH latex Allergy Intermediate Rash Verified 10/22/23 13:12 Penicillins [PENICILLINS] Allergy Intermediate DIFFICULTY Verified 10/22/23 13:12 BREATHING,SWELLING,RASH Home Medications Medication Instructions Recorded Confirmed Last Taken Type albuterol sulfate 90 mcg/actuation 1 puff inhalation QID PRN 10/22/23 10/22/23 Unknown History aerosol inhaler (ProAir HFA) Shortness Of Breath cetirizine 10 mg tablet (Zyrtec) 10 mg PO DAILY 10/22/23 10/22/23 Unknown History epinephrine 0.3 mg/0.3 mL 0.3 mg IM DIRECTED PRN 10/22/23 10/22/23 Unknown History injection, auto-injector Anaphylaxis multivitamin 1 tab PO DAILY 10/22/23 10/22/23 Unknown History Exam Height,Weight and Vital Signs: Height 5 ft 11 in Weight 110.223 kg Assessment and Plan Assessment Anesthesia Assessment: Chart Reviewed Documented by User: Vianey Henning MD 10/24/23 09:27 [facility] Past Medical History Medical History Back pain Seasonal allergies Asthma Family History Family History Mother Diabetes Father No problems noted. 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 Sexual orientation: Straight/Heterosexual Gender identity: Female Meds Allergies Allergy/AdvReac Type Severity Reaction Status Date / Time bee pollen [BEE STINGS] Allergy Severe HIVES, Verified 08/21/23 13:21 DIFFICULTY BREATHING pine nut Allergy Severe ANAPHYLAXIS Verified 08/21/23 13:21 sulfamethoxazole Allergy Severe ITCH,HIVES,THROAT Verified 10/22/23 13:12 [From BACTRIM] CLOSING POST [place], PT HAS HAD WITHOUT RXN trimethoprim [From BACTRIM] Allergy Severe ITCHING, Verified 10/22/23 13:12 HIVES, THROAT CLOSING amoxicillin [AMOXICILLIN] Allergy Intermediate HIVES/SWELLING/DIFFICULTY Verified 10/22/23 13:12 BREATHING/RASH latex Allergy Intermediate Rash Verified 10/22/23 13:12 Penicillins [PENICILLINS] Allergy Intermediate DIFFICULTY Verified 10/22/23 13:12 BREATHING,SWELLING,RASH Home Medications Medication Instructions Recorded Confirmed Last Taken Type albuterol sulfate 90 mcg/actuation 1 puff inhalation QID PRN 10/22/23 10/22/23 Unknown History aerosol inhaler (ProAir HFA) Shortness Of Breath cetirizine 10 mg tablet (Zyrtec) 10 mg PO DAILY 10/22/23 10/22/23 Unknown History epinephrine 0.3 mg/0.3 mL 0.3 mg IM DIRECTED PRN 10/22/23 10/22/23 Unknown History injection, auto-injector Anaphylaxis multivitamin 1 tab PO DAILY 10/22/23 10/22/23 Unknown History Exam Airway Mallampati Class: II TM Dist: >3cm Neck ROM: Full Loose/Missing/Broken Teeth: No Heart: RRR Lungs: CTA Assessment and Plan Final Anesthetic Review Family History of Problems with Anesthesia: No History of Problems with Anesthesia: No NPO: Yes ASA Class: II Final Preanesthetic Review: Meds/Allgs Chart Reviewed, Consent Obtained/Reviewed and Anes Risks/Benef Reviewed Patient Risk: Low Procedure Risk: Intermediate Anesthetic Plan Anesthetic Plan: MAC: Disposition: Standard PACU
[2023-10-24 08:44] VITALS: BMI 33.6
[2023-10-24 08:52] VITALS: BP 127/86; PULSE 80; RESP 16; TEMP 36.4; O2SAT 97
[2023-10-24 09:00] LABS: UPreg QC Valid YES; Urine Pregnancy NEGATIVE (NEGATIVE)
[2023-10-24] MEDS: Lactated Ringers 1,000 ML 100 ML IVCONT (09:06)
--- NOTE | 2023-10-24 09:44 | MHC.SHP ---
Pre-Procedural Eval Section A - 24 Hr Update-Section A only Date of Service: 10/24/23 Section B - Complete if H&P > 30 days Chief Complaint: Epigastric pain Details of Present Illness: see h&p no changes Relevant Family History (Specify if Yes): No Relevant Social History: None Present Medications: see Short Stay Collaborative assessment Medical History: No relevant PMH History of Previous Operations: No relevant previous surgery Allergies: Allergies Allergy/AdvReac Type Severity Reaction Status Date / Time bee pollen [BEE STINGS] Allergy Severe HIVES, Verified 08/21/23 13:21 DIFFICULTY BREATHING pine nut Allergy Severe ANAPHYLAXIS Verified 08/21/23 13:21 sulfamethoxazole Allergy Severe ITCH,HIVES,THROAT Verified 10/22/23 13:12 [From BACTRIM] CLOSING POST [place], PT HAS HAD WITHOUT RXN trimethoprim [From BACTRIM] Allergy Severe ITCHING, Verified 10/22/23 13:12 HIVES, THROAT CLOSING amoxicillin [AMOXICILLIN] Allergy Intermediate HIVES/SWELLING/DIFFICULTY Verified 10/22/23 13:12 BREATHING/RASH latex Allergy Intermediate Rash Verified 10/22/23 13:12 Penicillins [PENICILLINS] Allergy Intermediate DIFFICULTY Verified 10/22/23 13:12 BREATHING,SWELLING,RASH Review of Systems Sugical H&P ROS: Negative: Constitution, Cardiovascular, Respiratory, Neurological, Psychiatric, Hem-Onc, Allergic/Immunologic, Gastrointestinal, Genitourinary, Musculoskeletal, Integumentary, Endocrine and Eyes/Ears/Nose/Throat Exam Surgical H&P Exam: Normal: HEENT, Normal: Heart, Normal: Lungs, Normal: Extremities, Normal: Abdomen, Normal: Skin and Normal: Neurological Plan Diagnosis/Plan: Unchanged I have reviewed the history and physical and performed a pertinent physical examination on my patient. No changes have occurred unless specified. Time Spent With Patient Time: Total time managing care of this patient today ____ minutes.
[2023-10-24 10:13] VITALS: BP 112/79; PULSE 95; RESP 14; TEMP 36.7; O2SAT 98
[2023-10-24 10:28] VITALS: BP 120/78; PULSE 81; RESP 16; TEMP 36.3; O2SAT 100
--- NOTE | 2023-10-24 10:32 | OP_ITS ---
DATE OF SERVICE: 10/24/2023 SURGEON: Javad Rivera MD INDICATIONS: Epigastric pain. PREOPERATIVE DIAGNOSIS: Upper endoscopy with biopsy. POSTOPERATIVE DIAGNOSIS: PROCEDURE PERFORMED: ESTIMATED BLOOD LOSS: COMPLICATIONS: ANESTHESIA: Monitored anesthesia care. ASSISTANTS: SPECIMENS: DESCRIPTION OF PROCEDURE: A history and physical was performed. The risks and benefits of the procedure were explained to the patient. Informed consent was obtained. The patient was placed in the left lateral decubitus position. The Olympus video gastroscope was introduced into the esophagus, stomach, and duodenum. Examination was performed. The scope was removed. She tolerated the procedure well and was taken to the recovery area in stable condition. FINDINGS: Esophagus: The esophagus was normal. There was no esophagitis. Biopsies were obtained from the EG junction. Stomach: The stomach showed no evidence of masses, ulcers, or polyps. Antral biopsies were obtained to evaluate for H pylori. Duodenum: The bulb and 2nd portion were normal. Second portion biopsies were also obtained to evaluate for malabsorption. IMPRESSION: Normal upper endoscopy. RECOMMENDATION: 1. Follow up the biopsy results. 2. Continue omeprazole. MD GETACHEW Wells/STEPHON / [id number]
== END 2023-10-24 11:00 | disposition home or self-care (01) ==
PROVIDERS: Nurse Practitioner; PCP Internal Medicine Medical Oncology; Visit Provider Internal Medicine Gastroenterology
PROC: 0DJ08ZZ Inspection of Upper Intestinal Tract, Via Natural or Artificial Opening Endoscopic (ICD-10-PCS; CPT 43235; principal; 2023-10-24 09:30)
DX: R10.13 Epigastric pain (principal); Z79.899 Other long term (current) drug therapy
CPT/HCPCS: 43239; 81025; 88305; 88313; 88342; J2704

== ENCOUNTER 2024-04-20 09:43 | Outpatient (AMB) | payer OTHER, SELFPAY ==
--- NOTE | 2024-04-20 10:00 | A.OFFVIS_ITS ---
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 Body Masker: Body Masker Present (Clari) Allergies bee pollen [BEE STINGS] Allergy (Severe, Verified 04/20/24 10:01) HIVES, DIFFICULTY BREATHING pine nut Allergy (Severe, Verified 04/20/24 10:01) ANAPHYLAXIS sulfamethoxazole [From BACTRIM] Allergy (Severe, Verified 04/20/24 10:01) ITCH,HIVES,THROAT CLOSING POST TX, PT HAS HAD WITHOUT RXN trimethoprim [From BACTRIM] Allergy (Severe, Verified 04/20/24 10:01) ITCHING, HIVES, THROAT CLOSING amoxicillin [AMOXICILLIN] Allergy (Intermediate, Verified 04/20/24 10:01) HIVES/SWELLING/DIFFICULTY BREATHING/RASH latex Allergy (Intermediate, Verified 04/20/24 10:01) Rash Penicillins [PENICILLINS] Allergy (Intermediate, Verified 04/20/24 10:01) DIFFICULTY BREATHING,SWELLING,RASH Is last menstrual period known: Yes Last menstrual period: 04/11/24 HPI Comments Details: She is a premenopausal woman presenting for annual examination. Doing well with no concerns. She tries to eat healthy and stays active with exercise. Regular monthly menses, uses condoms. She reports occasional hot flashes. She denies vaginal itching and irritation. STI screening offered; she declines. Denies family history of ovarian cancer. Family history of breast and colon cancer. Last pap smear 2021, negative. [facility] Medical History Back pain Seasonal allergies Asthma Surgical History History of appendectomy Family History Mother Diabetes Father No problems noted. 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 Sexual orientation: Straight/Heterosexual Gender identity: Female Female Reproductive History Menstrual Age of Menarche: 9 Date of last menstrual period: 04/11/24 Total pregnancies: 0 Date of last pap smear: 03/13/22 (neg pap and hpv) Review of Systems Const All systems reviewed & are unremarkable except as noted in HPI and below Reports as per HPI Eyes Reports no additional complaints ENT Reports no additional complaints Card Reports no additional complaints Resp Reports no additional complaints GI Reports as per HPI and Reports no additional complaints Reports as per HPI Musc Reports no additional complaints Skin/Breast Reports as per HPI Neuro Reports no additional complaints Psych Reports no additional complaints Endo Reports no additional complaints Tho/Lymph Reports no additional complaints Aller/Immun Reports no additional complaints Physical Exam Vital Signs: Last Vital Signs BP 116/84 04/20/24 10:01 BMI result Body Mass Index 34.3 Const General: cooperative, healthy appearing, no acute distress, well developed and alert Orientation/consciousness: patient oriented x3 HEENT Head: Yes normal to inspection Eyes General: appearance normal, both eyes and all related structures Neck Neck: Yes normal visual inspection Thyroid: Thyroid normal Chest Chest palpation & inspection: normal inspection of the chest and other (no puckering, dimpling, peau de orange, retraction, discharge, masses) Breast/axilla inspection: normal inspection of the breasts Breast/axilla palpation: normal palpation of the breasts Resp Effort & Inspection: normal respiratory effort GI Inspection: Yes normal to inspection Palpation (GI): Soft to palpation Rectal Exam - Female: deferred General: Yes bladder normal to palpation External Female Exam: normal external appearance and normal appearance of the urethra Speculum Exam - Vagina: normal appearance of the vagina, normal palpation and normal vaginal discharge Speculum Exam - Cervix: normal appearance of the cervix and normal palpation Bimanual exam- vagina & uterus: normal bimanual exam, normal palpation, uterine size normal, bladder normal to palpation, normal palpation and non-tender Bimanual Exam- Adnexa, other: no masses Skin General skin exam: no rashes or lesions noted Rashes: no rashes Neuro General: patient oriented x3 Cognition (Neuro): normal cognition Extrem General: Yes normal to inspection Psych Attitude: cooperative Thought process: Normal thought process present Assessment & Plan Assessment & Plan (1) Encounter for well woman exam with routine gynecological exam: Code(s): Z01.419 - Encounter for gynecological examination (general) (routine) without abnormal findings Category: Medical Plan Discussed: Current recommendations for pap smears per ASCCP guidelines. Breast awareness and periodic breast exams. Maintain a healthy lifestyle including a well balanced diet and routine exercise. Use condoms for prevention. Perimenopausal changes. Monitor menstrual cycles, report any unscheduled bleeding, bleeding episodes <24 days apart or heavy/prolonged menstrual bleeding. Call the office for a follow up for any concerns. Patient verbalizes understanding and agrees to the plan of care. She was given opportunity to ask questions and all questions were answered to the best of my ability. RTO in one year for annual market development trainer examination. This note is constructed using voice recognition software. While every effort has been made to ensure accuracy, manager actuarial errors may have been included. Coding Level of Care Code Est Pt Prev Care 18-39y(22626) Diagnoses Encounter for well woman exam with routine gynecological exam Z01.419
[2024-04-20 10:01] VITALS: BP 116/84; BMI 34.3
== END 2024-04-20 11:00 | disposition home or self-care (01) ==
LOC: HO.HWS 09:43
PROVIDERS: PCP Internal Medicine Medical Oncology; Visit Provider Advanced Practice Midwife
DX: Z01.419 Encounter for gynecological examination (general) (routine) without abnormal findings (principal)
CPT/HCPCS: 99395

== ENCOUNTER → 2024-04-20 09:43 | Outpatient (BNVA) | payer OTHER, SELFPAY | PROVIDERS: PCP Internal Medicine Medical Oncology; Visit Provider Advanced Practice Midwife ==

== ENCOUNTER 2024-06-29 08:39 | Outpatient (REF) | payer OTHER, SELFPAY ==
--- NOTE | ~2024-06-29 | XR_ITS ---
EXAMINATION: XR KNEE, RIGHT CLINICAL INFORMATION: M25.561 - Pain in right knee COMPARISON: None available. TECHNIQUE: AP view of the right knee. FINDINGS: No fracture or joint effusion. Alignment is anatomic. Joint spaces are maintained. No abnormal soft tissue calcification. XR/XR knee RT 1V IMPRESSION: Normal right knee. Electronically signed by: Scot Rodriguez MD 08/27/2024 12:35 PM [facility] [place]
--- NOTE | ~2024-06-29 | XR_ITS ---
EXAMINATION: XR KNEE, LEFT CLINICAL INFORMATION: M25.562 - Pain in left knee COMPARISON: 12/19/2014. TECHNIQUE: Three views of the left knee. FINDINGS: No fracture, dislocation, or suspicious bone lesion. There is normal alignment. There is normal bone mineralization. Medial, lateral, and patellofemoral compartment joint spaces preserved. There is a moderate sized suprapatellar joint effusion present. Soft tissues otherwise appear normal. XR/XR knee LT 3V IMPRESSION: 1. No acute bony abnormalities. 2. Moderate sized suprapatellar joint effusion of indeterminate etiology. Electronically signed by: Scot Rodriguez MD 08/27/2024 12:37 PM [facility]
== END 2024-06-29 08:40 | disposition home or self-care (01) ==
LOC: HO.HOSX 08:39
PROVIDERS: Visit Provider Physician Assistant
DX: M25.561 Pain in right knee (principal); M25.562 Pain in left knee
CPT/HCPCS: 73560; 73562

== ENCOUNTER 2024-06-29 09:23 | Outpatient (AMB) | payer OTHER, SELFPAY ==
--- NOTE | 2024-06-29 09:41 | A.OFFVIS_ITS ---
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 Patients reports having a history of knee aspirations about 8 years ago. She recently went out for her birthday on 06/25/24 and the following day she woke up with pain and swelling. Denies injury. She presented to an urgent care on 06/27/24, they tested her for gout however she has not received results. She was also prescribed prednisone that she going to be starting today. Currently she is having constant pain around her kneecap and posterior aspect of knee. States feeling a little fluid in her knee. Finds little relief with Tylenol as well as resting and heat. She feels icing makes her stiffness worse. Allergies bee pollen [BEE STINGS] Allergy (Severe, Verified 06/29/24 09:43) HIVES, DIFFICULTY BREATHING pine nut Allergy (Severe, Verified 06/29/24 09:43) ANAPHYLAXIS sulfamethoxazole [From BACTRIM] Allergy (Severe, Verified 06/29/24 09:43) ITCH,HIVES,THROAT CLOSING POST TX, PT HAS HAD WITHOUT RXN trimethoprim [From BACTRIM] Allergy (Severe, Verified 06/29/24 09:43) ITCHING, HIVES, THROAT CLOSING amoxicillin [AMOXICILLIN] Allergy (Intermediate, Verified 06/29/24 09:43) HIVES/SWELLING/DIFFICULTY BREATHING/RASH latex Allergy (Intermediate, Verified 06/29/24 09:43) Rash Penicillins [PENICILLINS] Allergy (Intermediate, Verified 06/29/24 09:43) DIFFICULTY BREATHING,SWELLING,RASH Medication List - Last Reconciled 06/29/24 by Reynold Galvan PA-C albuterol sulfate 90 mcg/actuation (ProAir HFA) 1 puff inhalation QID PRN cetirizine (Zyrtec) 10 mg PO DAILY epinephrine 0.3 mg IM DIRECTED PRN multivitamin 1 tab PO DAILY omeprazole 20 mg PO DAILY prednisone 20 mg PO DAILY HPI 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 She states approximately 4-5 days ago she was out with some friends and she noticed she had some pain and swelling the following day. She denies injury. She was seen at urgent care who ordered labs to rule out gout. Pending results. They gave her a prescription for prednisone which she has yet to start. No other treatment to date. [facility] Medical History Back pain Seasonal allergies Asthma Surgical History History of appendectomy Family History Mother Diabetes Father No problems noted. 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 Sexual orientation: Straight/Heterosexual Gender identity: Female Female Reproductive History Menstrual Age of Menarche: 9 Review of Systems Const All systems reviewed & are unremarkable except as noted in HPI and below Physical Exam Vital Signs: BMI result Body Mass Index 34.3 Const General: cooperative and no acute distress Orientation/consciousness: patient oriented x3 Resp Effort & Inspection: normal respiratory effort and able to speak in complete sentences Cardio Peripheral pulses: Peripheral pulses 2+ throughout Neuro General: patient oriented x3 Extrem Other: Left knee normal to inspection. No abrasions. No redness. No. She has trace joint effusion. Mild tenderness around the patella with patellar grind. She can extend the knee without lag. Flexion to 95 degrees. Mild medial and lateral tenderness to the joint. Calf supple nontender neurovascularly intact. Results Reviewed Results Reviewed: X-rays of the left knee obtained in the office today are negative for any acute or chronic abnormalities. Assessment & Plan Assessment & Plan (1) Patellofemoral arthritis of left knee: Code(s): M17.12 - Unilateral primary osteoarthritis, left knee Category: Medical Plan: We discussed options today which include aspiration and injection. She would like to start the prednisone 1st to see how she responds to this which I am in agreement with. I encouraged activity as tolerated. She was fit for a knee brace in the office today. If symptoms persist or worsen over the next several weeks after she has discontinued the prednisone she can contact our office to discuss steroid injection otherwise follow-up as needed. Orders: Orders XR knee RT 1V Today M25.561 - Pain in right knee XR knee LT 3V Today M25.562 - Pain in left knee Coding Level of Care Code Est Pt Level 3 (22813) Complex EM visit Add On G2211 Diagnoses Patellofemoral arthritis of left knee M17.12
[2024-06-29 09:48] VITALS: BMI 34.3
== END 2024-06-29 10:41 | disposition home or self-care (01) ==
PROVIDERS: PCP Internal Medicine Medical Oncology; Visit Provider Physician Assistant
DX: M17.12 Unilateral primary osteoarthritis, left knee (principal)
CPT/HCPCS: 99213

== ENCOUNTER → 2024-06-29 09:35 | Outpatient (BNV) | payer OTHER, SELFPAY | PROVIDERS: Visit Provider Radiology Diagnostic Radiology | DX: M25.462 Effusion, left knee (principal); M25.561 Pain in right knee | CPT/HCPCS: 73560; 73562 ==

== ENCOUNTER 2024-07-07 11:00 | Outpatient (REF) | payer OTHER, SELFPAY ==
[2024-07-07 11:24] LABS: MANUAL DIFF FLAG NO
[2024-07-07 12:02] LABS: Basophils Absolute Auto 0.1 X10*3/uL (0.0-0.2); Basophils Percent Auto 0.7 % (0-2); Eosinophils Absolute Auto 0.2 X10*3/uL (0.0-0.4); Eosinophils Percent Auto 1.4 % (0-4); Hematocrit 36.1 % (37.0-47.0); Hemoglobin 12.2 g/dl (12.0-16.0); Imm Gran Abs Auto 0.06 X10*3/uL (0.00-0.03); Imm Gran Pct Auto 0.5 % (0.0-0.4); Lymphocytes Absolute Auto 2.9 X10*3/uL (1.2-4.9); Lymphocytes Percent Auto 24.3 % (20-40); Mean Corpuscular HGB Conc 33.8 g/dl (31.0-35.0); Mean Corpuscular Hemoglobin 28.1 pg (27.0-33.0); Mean Corpuscular Volume 83.2 fL (80.0-98.0); Mean Platelet Volume 10.3 fL (9.4-12.3); Monocytes Absolute Auto 0.6 X10*3/uL (0.1-1.2); Monocytes Percent Auto 4.8 % (2-11); Neutrophils Absolute Auto 8.2 x10*3/uL (2.0-8.3); Neutrophils Percent Auto 68.3 % (45-73); Platelet Count 301 X10*3/uL (160-400); Red Blood Count 4.34 X10*6/uL (4.20-5.50); Red Cell Distribution Width 13.4 % (11.0-16.0)
[2024-07-07 12:41] LABS: Alanine Aminotransferase 18 U/L (0-31); Alkaline Phosphatase 51 U/L (39-117); Anion Gap 13 (12-20); Aspartate Amino Transferase 14 U/L (5-31); Bilirubin Total 0.3 mg/dL (0.0-1.0); Blood Urea Nitrogen 20 mg/dL (9-16); Calcium 9.1 mg/dL (8.4-10.2); Carbon Dioxide 24 mmol/L (22-29); Chloride 107 mmol/L (96-108); Estimated Glomerular Filt Rate > 60; Glucose Random 102 mg/dL (60-115); Potassium 3.3 mmol/L (3.3-5.1); Sodium 141 mmol/L (135-145); Total Protein 6.6 g/dL (6.5-8.0); Uric Acid 5.8 mg/dL (2.4-5.7)
[2024-07-07 12:46] LABS: Rheumatoid Factor < 13.0 IU/mL (<15.0)
[2024-07-11 13:13] LABS: Anti Nuclear Antibody Screen POSITIVE (NEGATIVE)
== END 2024-07-07 11:01 | disposition home or self-care (01) ==
LOC: HO.LAB 11:00
PROVIDERS: PCP Internal Medicine Medical Oncology; Visit Provider Internal Medicine Medical Oncology
DX: M19.90 Unspecified osteoarthritis, unspecified site (principal); E66.9 Obesity, unspecified
CPT/HCPCS: 36415; 80053; 84550; 85025; 86038; 86039; 86431

== ENCOUNTER 2024-08-25 11:45 | Outpatient (AMB) | payer OTHER, SELFPAY ==
--- NOTE | 2024-08-25 11:47 | MHC.OFFVIS ---
Vital Signs 08/25/24 11:54 Height 5 ft 11 in Weight 246 lb BMI 34.3 Intake Visit Reasons: OV- Lt knee pain follow up Intake Note: Nelda a 39 year old female who presents today for a follow up of left knee pain. Patient reports at her last visit she was prescribed prednisone and felt it did not help. She continues to have intermittent pain, swelling and stiffness. States her pain wraps around her whole knee and has recently radiated down her leg to the top of foot. She has some numbness and tingling as well. Finds some relief Tylenol and Motrin. Allergies bee pollen [BEE STINGS] Allergy (Severe, Verified 08/25/24 11:51) HIVES, DIFFICULTY BREATHING pine nut Allergy (Severe, Verified 08/25/24 11:51) ANAPHYLAXIS sulfamethoxazole [From BACTRIM] Allergy (Severe, Verified 08/25/24 11:51) ITCH,HIVES,THROAT CLOSING POST TX, PT HAS HAD WITHOUT RXN trimethoprim [From BACTRIM] Allergy (Severe, Verified 08/25/24 11:51) ITCHING, HIVES, THROAT CLOSING amoxicillin [AMOXICILLIN] Allergy (Intermediate, Verified 08/25/24 11:51) HIVES/SWELLING/DIFFICULTY BREATHING/RASH latex Allergy (Intermediate, Verified 08/25/24 11:51) Rash Penicillins [PENICILLINS] Allergy (Intermediate, Verified 08/25/24 11:51) DIFFICULTY BREATHING,SWELLING,RASH Medication List - Last Reconciled 08/25/24 by Reynold Galvan PA-C albuterol sulfate 90 mcg/actuation (ProAir HFA) 1 puff inhalation QID PRN cetirizine (Zyrtec) 10 mg PO DAILY epinephrine 0.3 mg IM DIRECTED PRN multivitamin 1 tab PO DAILY omeprazole 20 mg PO DAILY prednisone 20 mg PO DAILY HPI HPI OV- Lt knee pain follow up: Details: 39-year-old female who returns to the office today for a follow-up of left knee pain. She continues to have stiffness, swelling and intermittent pain that wraps around her whole knee and has recently radiated down to her leg to the top of her foot. Her pain is aggravated at night. She also reports some numbness and tingling in her knee. She finds mild relief with Tylenol and Motrin. She had an injection in the past which did not provide her any relief. PFSH Medical History Back pain Seasonal allergies Asthma Surgical History History of appendectomy Family History Mother Diabetes Father No problems noted. 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 No abrasions. No redness. No. She has moderate joint effusion. Mild tenderness around the patella with patellar grind. She can extend the knee without lag. Flexion to 95 degrees. Mild medial and lateral tenderness to the joint. Calf supple nontender neurovascularly intact. Office Procedures AMB Joint Injection/Aspiration Joint Injection/Aspiration Details: aspiration 65cc yellow joint fuid Primary Site: left knee Prep: site was prepped using aseptic technique, ethochloride spray was applied and injection warnings given Injected: 80 mg of, DepoMedrol, with 8 mL of, 1% plain lidocaine and in the joint Approach Used: lateral parapatellar Procedure: The patient tolerated the procedure well and there was some relief with the local anesthesia Coding 19841 - Glenohumeral/Tronchanteric Bursa/Intraarticular Procedure code (CPT) selection complete Assessment & Plan Assessment & Plan (1) Patellofemoral arthritis of left knee: Code(s): M17.12 - Unilateral primary osteoarthritis, left knee Category: Medical Plan We discussed options today, which include steroid injection. The patient did consent to move forward with the left knee aspiration with injection, which was tolerated well. I was able to aspirate 65cc yellow joint fluid.I recommended rest, ice, and elevation and OTC anti-inflammatories as needed for discomfort. If symptoms persist or worsens over the next 6-8 weeks, patient will contact the office, otherwise follow-up as needed. Patient Instructions: Scribed for Reynold Galvan PA-C, by Emiliano Moran medical billing and coding instructor, on 08/25/2024 at 11:45 AM EST.? I, Reynold Galvan PA-C, have personally reviewed and agree with the information entered by the scribe. Coding Level of Care Code Est Pt Level 3 (70638) Complex EM visit Add On G2211 Diagnoses Patellofemoral arthritis of left knee M17.12 CPT Codes Coding - Joint 7: 49603 - Glenohumeral/Tronchanteric Bursa/Intraarticular ([id number])
[2024-08-25 11:54] VITALS: BMI 34.3
== END 2024-08-25 12:31 | disposition home or self-care (01) ==
PROVIDERS: PCP Internal Medicine Medical Oncology; Visit Provider Physician Assistant
DX: M17.12 Unilateral primary osteoarthritis, left knee (principal)
CPT/HCPCS: 20610; 99213

== ENCOUNTER → 2024-08-25 11:45 | Outpatient (BNVA) | payer OTHER, SELFPAY | PROVIDERS: PCP Internal Medicine Medical Oncology; Visit Provider Physician Assistant | DX: M17.12 Unilateral primary osteoarthritis, left knee (principal) | CPT/HCPCS: 20610; J1010; J2003 ==